=== PATIENT | male | born 1990 | race Hispanic/Latino ===

== ENCOUNTER 2022-09-08 09:11 | Emergency (ER) | payer SELFPAY ==
[~2022-09-08] VITALS: Ht 172.7 cm; Wt 88.5 kg
[2022-09-08] MEDS ORDERED: FLUORESCEIN SOD(OPTH) 1 MG STRP ONE (09:38)
[2022-09-08] MEDS ORDERED: TETRACAINE HCL 0.5% OPTH SOLN 4 ML BTL ONE (09:39)
[2022-09-08] MEDS ORDERED: FLUORESCEIN SOD(OPTH) 1 MG STRP OP ONE (09:45)
[2022-09-08] MEDS ORDERED: TETRACAINE HCL 0.5% OPTH SOLN 4 ML BTL OP ONE (09:45)
[2022-09-08] MEDS ORDERED: ERYTHROMYCIN (OPTH) 3.5 GM OINT OP ONE ×2 (10:00→10:09)
[2022-09-08] MEDS ORDERED: CILOXAN3.5 GM OD (10:09)
[2022-09-08 10:15] VITALS: BP 151/83
== END 2022-09-08 10:25 | disposition home or self-care (01) ==
LOC: FSED 09:14
DX: H10.89 Other conjunctivitis (principal); H18.9 Unspecified disorder of cornea; T75.89XA Other specified effects of external causes, initial encounter; Y99.0 Civilian activity done for income or pay; I10 Essential (primary) hypertension
CPT/HCPCS: 99283